=== PATIENT | female | born 1995 | race African-American/Black ===

== ENCOUNTER 2020-02-14 00:16 | Inpatient (IN) | payer MEDICAID ==
[2020-02-14] MEDS ORDERED: Carboprost Tromethamine 250 MCG/1 ML Amp IM PRN (00:22)
[2020-02-14] MEDS ORDERED: Water For Irrigation,Sterile 1,000 ML Container IRR PRN (00:22)
[2020-02-14] MEDS ORDERED: hydrOXYzine HCl 25 MG Tab PO PRN (00:22)
[2020-02-14] MEDS ORDERED: Butorphanol 1 MG/ML SDV IVPUSH PRN (00:22)
[2020-02-14] MEDS ORDERED: Sodium Chloride 0.9% 10 ML Syringe FLUSH PRN (00:22)
[2020-02-14] MEDS ORDERED: Misoprostol 200 MCG Tab PO PRN (00:22)
[2020-02-14] MEDS ORDERED: Ondansetron 4 MG/2 ML SDV IVPUSH PRN (00:22)
[2020-02-14] MEDS ORDERED: Sodium Chloride 0.9% 2.5 ML Syringe FLUSH PRN (00:22)
[2020-02-14] MEDS ORDERED: Tranexamic Acid 1,000 MG in Sodium Chloride 0.9% 100 ML IV PRN (00:22)
[2020-02-14] MEDS ORDERED: Sodium Chloride 0.9% 10 ML SDV IV PRN (00:22)
[2020-02-14] MEDS ORDERED: Terbutaline 1 MG/ML SDV SUBCUT PRN (00:22)
[2020-02-14] MEDS ORDERED: Lidocaine 1% 50 ML MDV INJECT PRN (00:22)
[2020-02-14] MEDS ORDERED: Methylergonovine 0.2 MG/1 ML Amp IM PRN (00:22)
[2020-02-14] MEDS ORDERED: Oxytocin/0.9 % Sodium Chloride 30 UNIT/500 ML BAG IV SCH ×2 (00:30)
[2020-02-14] MEDS: Misoprostol 25 MCG (1/4 of 100 MCG) Tab PO PRN ×2 (01:24→05:49)
[2020-02-14] MEDS: Misoprostol 25 MCG (1/4 of 100 MCG) Tab VAG PRN ×2 (01:24→05:49)
[2020-02-14] MEDS ORDERED: FLU Vacc QS2020-21 36MOS UP/PF 60 MCG/0.5 ML Syringe IM ONE (02:30)
[2020-02-14] MEDS: Lactated Ringers 1,000 ML IV SCH ×4 (02:42→16:44)
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
[2020-02-14] MEDS: Nalbuphine 10 MG/1 ML Vial IVPUSH PRN ×2 (11:14→12:58)
[2020-02-14] MEDS ORDERED: fentaNYL 100 MCG/2 ML SDV ONE (14:36)
[2020-02-14] MEDS ORDERED: Ropivacaine HCl/PF 100 ML ONE (14:36)
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
--- NOTE | 2020-02-14 15:17 | PCM.PRNOTE ---
- Free Text/Narrative Note: Anes NOte Patient requests epidural for L&D. Sitting position, level L3-L4 midline approach. Sterile technique, chloraprep scrub to lumbar area. Sterile fenestrated drape applied. Epidural space easily achieved suing PRICILLA technique. PRICILLA at 3 cm. Cath threaded 6 cm with ease. Cath secured a t skin using sterile tclear adhesive dressing. 1508 Test 3 cc 1.5% lido with epi negative. 1511 Lod 10 cc 0.2% ropiviciane with 1 mcg cc fentanyl in slow divided doses. 1515 Pump started at 8 cc hr with 6 cc q 20 min prn bolus. Gena well. Time with patient [id number] Kita Ochoa CRNA
--- NOTE | 2020-02-14 15:26 | PCM.PRNOTE ---
- Free Text/Narrative Note: Corrected Anes Procedure note time. Time with patient [id number] Thomas Ochoa CATH LAB TECH
[2020-02-14] MEDS ORDERED: metFORMIN 500 MG Tab PO SCH (17:30)
[2020-02-14] MEDS ORDERED: Bisacodyl 10 MG Supp RECTAL PRN (21:45)
[2020-02-14] MEDS ORDERED: oxyCODONE 5 MG Tab PO PRN (21:45)
[2020-02-14] MEDS ORDERED: Witch Hazel Medicated Pads 40/Jar TOP PRN (21:45)
[2020-02-14] MEDS ORDERED: Acetaminophen 500 MG Tab PO PRN ×2 (21:45)
[2020-02-14] MEDS ORDERED: Ibuprofen 400 MG Tab PO PRN (21:45)
[2020-02-14] MEDS ORDERED: Benzocaine/Menthol 20%-0.5% Spray 78 GM Cannister TOP PRN (21:45)
[2020-02-14] MEDS ORDERED: Docusate Sodium 100 MG Cap PO PRN (21:45)
[2020-02-14] MEDS ORDERED: Lanolin 100% Cream 7 GM Tube TOP PRN (21:45)
[2020-02-14] MEDS: Ibuprofen 800 MG Tab PO PRN (23:45)
[2020-02-15] MEDS ORDERED: Diphtheria,Pertussis(Acell),Tetanus Vaccine 0.5 ML Syringe IM ONE (02:15)
--- NOTE | 2020-02-15 07:11 | PCM48HPAN ---
Post Anesthesia Note - EVALUATION WITHIN 48HRS OF ANESTHETIC Vital Signs in Normal Range: Yes Patient Participated in Evaluation: Yes Respiratory Function Stable: Yes Airway Patent: Yes Cardiovascular Function Stable: Yes Hydration Status Stable: Yes Pain Control Satisfactory: Yes Nausea and Vomiting Control Satisfactory: Yes Mental Status Recovered: Yes Vital Signs: Last Vital Signs Temp 36.4 C 02/15/20 02:54 Pulse 80 02/15/20 02:54 Resp 18 02/15/20 02:54 BP 114/55 L 02/15/20 02:54 Pulse Ox 97 02/15/20 02:54
--- NOTE | 2020-02-15 08:27 | OR ---
SURGEON: Sonu Wills MD DATE OF PROCEDURE: 02/14/2020 Ms. Renita Soto is a 24-year-old patient. She is primigravida. She is followed in our clinic jointly by myself and the assembler fishing floats. Her is complicated with gestational diabetes, and she was on metformin during this . The patient is admitted for elective induction because of her diabetes at 39 weeks. She was induced with Cytotec and Pitocin. She responded to that very well. At 10 o'clock this morning, she was 4 cm, 80, vertex, and minus 1 station. She had epidural anesthesia for labor analgesia. Later on, she progressed to 7, and she had a spontaneous rupture of the membrane with clear fluid. The patient continued to progress without any problem spontaneously. Later on, she was complete and complete, and she pushed for about an hour and a half, and she was able to accomplish normal spontaneous vaginal delivery. There was very small perineal tear, did not require stitching. There was no labial or cervical laceration. Placenta delivered spontaneous, complete, and intact without any problem. Estimated blood loss was 350 to 400 mL. heart rate was category 1 through the entire process of labor and delivery. There was no complication in the labor and the delivery process on this patient. LUANN / AUTUMN /[id number]
[2020-02-16] MEDS: Ibuprofen 800 MG Tab PO PRN ×2 (00:40→11:10)
--- NOTE | 2020-02-16 08:28 | PCM.DCSUM1 ---
Discharge Summary - Hospital Course Free Text/Narrative:: Discharge home with baby. Follow up in the clinic in 6 weeks for routine visit; sooner, if needed. Diagnosis: Stroke: No Modified Rodney Scale: No Symptoms at All Modified Rodney Scale Score: 0 - Discharge Data Discharge Date: 02/16/20 Discharge Disposition: Home, Self-Care 01 Condition: Good - Referral to Home Health Primary Care Physician: PCP None - Discharge Diagnosis/Problem(s) (1) (spontaneous vaginal delivery) SNOMED Code(s): 006725067 ICD Code: O80 - ENCOUNTER FOR FULL-TERM UNCOMPLICATED DELIVERY Status: Acute Priority: High Current Visit: Yes - Patient Instructions Diet: Usual Diet as Tolerated, Regular Diet as Tolerated, Drink 8-10+ Glasses/Day Activity: As Tolerated, No Strenuous Activities, Rest and Relax Today Driving: May Drive Today Showering/Bathing: May Shower Notify Provider of: Fever, Increased Pain, Swelling and Redness, Drainage, Nausea and/or Vomiting - Discharge Plan *PRESCRIPTION DRUG MONITORING PROGRAM REVIEWED*: Not Applicable *COPY OF PRESCRIPTION DRUG MONITORING REPORT IN PATIENT JETT: Not Applicable Prescriptions/Med Rec: Ibuprofen [Motrin] 800 mg PO Q6H PRN #90 tablet PRN Reason: Pain Home Medications: Home Meds Pnv No.95/Ferrous Fum/Folic AC [ Tablet] 1 each PO DAILY 01/21/20 [History] metFORMIN [Glucophage XR] 500 mg PO DAILY 01/21/20 [History] Ibuprofen [Motrin] 800 mg PO Q6H PRN #90 tablet 02/16/20 [Rx] Oxygen Therapy Mode: Room Air Referrals: [facility] [Outside] Sonu Wills MD [Physician] - 03/30/20 10:15 am (Follow up appointment 03/30/19 @ 10:15. Please arrive 30 minutes early with ID and Insurance cards. Masks are required. ) - Discharge Summary/Plan Comment DC Time >30 min.: Yes - General Info Date of Service: 02/16/20 Admission Dx/Problem (Free Text: Patient Status Order with Admit Dx/Problem 02/14/20 00:22 Patient Status [ADT] Routine Admission Diagnosis/Problem Admission Diagnosis/Problem 02/14/20 08:48 Renita is a 24 yo at 39+3 weeks gestation (KIRT 02/18/2020) that presents to L&D today for IOL d/t GDM treated with oral hypoglycemia therapy. Reports adequate movement. Denies LOF or vaginal bleeding at this time. AB pos, Ab screen neg, RI, GBS neg. EFW via 6-7 lbs. Pertinent medical history includes: GDM, obesity, late to PNC. NKDA. Medications: 500 mg metformin PO daily. Patient has no other complaints or concerns at this time. Functional Status: Reports: Pain Controlled, Tolerating Diet, Ambulating, Urinating - Review of Systems General: Reports: No Symptoms HEENT: Reports: No Symptoms Pulmonary: Reports: No Symptoms Cardiovascular: Reports: No Symptoms Gastrointestinal: Reports: No Symptoms Genitourinary: Reports: No Symptoms Musculoskeletal: Reports: No Symptoms Skin: Reports: No Symptoms Neurological: Reports: No Symptoms Psychiatric: Reports: No Symptoms - Patient Data Vitals - Most Recent: Last Vital Signs Temp 98.3 F 02/16/20 07:25 Pulse 64 02/16/20 07:25 Resp 16 02/16/20 07:25 BP 112/54 L 02/16/20 07:25 Pulse Ox 98 02/16/20 07:25 Weight - Most Recent: 234 lb Lab Results - Last 24 hrs: Laboratory Results - last 24 hr 02/14/20 Range/Units 01:20 RPR Non-Reac (Non-Reac) Med Orders - Current: Current Medications Acetaminophen (Tylenol Extra Strength) 500 mg PO Q4H PRN PRN Reason: Pain Acetaminophen (Tylenol Extra Strength) 1,000 mg PO Q4H PRN PRN Reason: Pain Benzocaine/Menthol (Dermoplast Pain Relief 20%-0.5% [place]) 78 gm TOP ASDIRECTED PRN PRN Reason: Perineal Comfort Measure Bisacodyl (Dulcolax) 10 mg RECTAL ONETIME PRN PRN Reason: Constipation Butorphanol Tartrate (Stadol) 1 mg IVPUSH Q1H PRN PRN Reason: Pain Last Admin: 02/14/20 08:57 Dose: 1 mg Documented by: Carboprost Tromethamine (Hemabate Ds) 250 mcg IM ASDIRECTED PRN PRN Reason: Post Hemorrhage Docusate Sodium (Colace) 100 mg PO BID PRN PRN Reason: Constipation Emollient Ointment (Lansinoh Hpa) 0 gm TOP ASDIRECTED PRN PRN Reason: Sore Nipples Hydroxyzine HCl (Atarax) 50 mg PO ONETIME PRN PRN Reason: Insomnia Last Admin: 02/14/20 05:20 Dose: 50 mg Documented by: Oxytocin/Sodium Chloride (Oxytocin 30 Unit/500 Ml-Ns) 30 unit in 500 mls @ 999 mls/hr IV TITRATE [facility] Last Infusion: 02/14/20 23:30 Dose: Infused Documented by: Tranexamic Acid 1,000 mg/ (Sodium Chloride) 110 mls @ 660 mls/hr IV ONETIME PRN PRN Reason: Bleeding Oxytocin/Sodium Chloride (Oxytocin 30 Unit/500 Ml-Ns) 30 unit in 500 mls @ 2 mls/hr IV TITRATE [facility]; Protocol Lactated Ringer's (Ringers, Lactated) 1,000 mls @ 150 mls/hr IV ASDIRECTED [facility] Last Infusion: 02/14/20 23:30 Dose: Infused Documented by: Ibuprofen (Motrin) 400 mg PO Q4H PRN PRN Reason: Pain Ibuprofen (Motrin) 800 mg PO Q6H PRN PRN Reason: Pain Last Admin: 02/16/20 00:40 Dose: 800 mg Documented by: Lidocaine HCl (Xylocaine 1%) 50 ml INJECT ONETIME PRN PRN Reason: Laceration repair Metformin HCl (Glucophage) 500 [facility] [place] [facility] Methylergonovine Maleate (Methergine) 0.2 mg IM ASDIRECTED PRN PRN Reason: Post Hemorrhage Misoprostol (Cytotec) 200 mcg PO ONETIME PRN PRN Reason: Post Hemorrhage Misoprostol (Cytotec) 25 mcg VAG Q4H PRN PRN Reason: Cervical Ripening Last Admin: 02/14/20 05:49 Dose: 25 mcg Documented by: Misoprostol (Cytotec) 25 mcg PO Q4H PRN PRN Reason: Labor Last Admin: 02/14/20 05:49 Dose: 25 mcg Documented by: Nalbuphine HCl (Nubain) 10 mg IVPUSH Q1H PRN PRN Reason: Pain (severe 7-10) Last Admin: 02/14/20 12:58 Dose: 10 mg Documented by: Ondansetron HCl (Zofran) 4 mg IVPUSH Q4H PRN PRN Reason: Nausea/Vomiting Oxycodone HCl (Oxycodone) 5 mg PO Q2H PRN PRN Reason: Pain Sodium Chloride (Saline Flush) 10 ml FLUSH ASDIRECTED PRN PRN Reason: Keep Vein Open Sodium Chloride (Saline Flush) 2.5 ml FLUSH ASDIRECTED PRN PRN Reason: Keep Vein Open Sodium Chloride (Normal Saline) 10 ml IV ASDIRECTED PRN PRN Reason: IV Use Sterile Water (Sterile Water For Irrigation) 1,000 ml IRR ASDIRECTED PRN PRN Reason: delivery Terbutaline Sulfate (Brethine) 0.25 mg SUBCUT ASDIRECTED PRN PRN Reason: Tacysystole Witch Bindu (Tucks) 1 pad TOP ASDIRECTED PRN PRN Reason: comfort care Discontinued Medications Diphtheria/Tetanus/Acell Pertussis (Boostrix) 0.5 ml IM .ONCE ONE Stop: 02/15/20 02:16 Fentanyl (Sublimaze) Confirm Administered Dose 100 mcg .ROUTE .STK-MED ONE Stop: 02/14/20 14:37 Ropivacaine (Naropin 0.2%) Confirm Administered Dose 100 mls @ as directed .ROUTE .STK-MED ONE Stop: 02/14/20 14:37 Influenza Virus Vaccine (Afluria Quad 2020-21 (3yr Up)) 60 mcg IM .ONCE ONE Stop: 02/14/20 02:31 - Exam General: Reports: Alert, Oriented, Cooperative, No Acute Distress Lungs: Reports: Normal Respiratory Effort Cardiovascular: Reports: Regular Rate, Regular Rhythm GI/Abdominal Exam: Soft, Non-Tender (Female) Exam: Deferred Rectal (Female) Exam: Deferred Back Exam: Reports: Normal Inspection, Full Range of Motion Extremities: Normal Inspection, Normal Range of Motion, Non-Tender, Normal Capillary Refill Skin: Reports: Warm, Dry, Intact Neurological: Reports: No New Focal Deficit, Normal Speech, Normal Tone, Strength Equal Bilateral, Sensation Intact Psy/Mental Status: Reports: Alert, Normal Affect, Normal Mood
[2020-02-16] MEDS ORDERED: FLU VACC QS2020-21(6MOS UP)/PF 60 MCG/0.5 ML SYRINGE IM ONE (09:00)
== END 2020-02-16 18:34 | disposition home or self-care (01) | DRG 807 ==
LOC: MW.OBCHECK 00:16 → MW.OB 00:18 → MW.OBCHECK 00:22 → OBSVTOIN 21:39 → MW.OB 02-15 02:55
PROVIDERS: ADMIT Obstetrics & Gynecology; ATTEND Obstetrics & Gynecology
PROC: 10E0XZZ Delivery of Products of Conception, External Approach (ICD-10-PCS; principal; 2020-02-14)
PROC: 3E033VJ Introduction of Other Hormone into Peripheral Vein, Percutaneous Approach (ICD-10-PCS; 2020-02-14)
PROC: 3E0R3BZ Introduction of Anesthetic Agent into Spinal Canal, Percutaneous Approach (ICD-10-PCS; 2020-02-14)
PROC: 00HU33Z Insertion of Infusion Device into Spinal Canal, Percutaneous Approach (ICD-10-PCS; 2020-02-14)
PROC: 3E02340 Introduction of Influenza Vaccine into Muscle, Percutaneous Approach (ICD-10-PCS; 2020-02-16)
DX: O24.425 Gestational diabetes mellitus in childbirth, controlled by oral hypoglycemic drugs (principal); Z37.0 Single live birth; Z3A.39 39 weeks gestation of pregnancy; O99.214 Obesity complicating childbirth; E66.9 Obesity, unspecified; Z91.013 Allergy to seafood; Z23 Encounter for immunization
CPT/HCPCS: 36415; 51702; 59409; 85014; 85018; 85027; 86156; 86592; 86850; 86900; 86901; 90471; 90686; A9270-GY; J0595; J2300; J2590; J7120

== ENCOUNTER 2020-04-17 11:52 | Emergency (ER) | payer MEDICAID, OTHER, SELFPAY ==
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
[2020-04-17] MEDS ORDERED: Dicyclomine 10 MG Cap PO ONE (12:50)
[2020-04-17] MEDS ORDERED: Magnesium Citrate Solution 296 ML Bottle PO ONE ×2 (12:50→12:57)
--- NOTE | 2020-04-17 13:11 | CR ---
Indication: Constipation Technique: Plain film of abdomen as a supine study Comparison: None Findings: No pathologic calcifications. Normal osseous structures. Moderate diffuse fecal retention without mechanical obstruction Impression: Moderate fecal retention without evidence of mechanical obstruction. Dictated by Cody Sheridan MD @ Apr 17 2020 1:09PM Signed by Dr. Cody Sheridan @ Apr 17 2020 1:10PM
[2020-04-17 13:27] LABS: BLOOD UREA NITROGEN,BUN 11 mg/dL (7.0-18.0); CARBON DIOXIDE,CO2 28.3 mmol/L (21.0-32.0); CHLORIDE,CL 101 mmol/L (98-107); GLUCOSE RANDOM 92 mg/dL (74-106); LIPASE 200 U/L (73-393); POTASSIUM,K 4.5 mmol/L (3.5-5.1); SODIUM,NA 137 mmol/L (136-145)
--- NOTE | 2020-04-17 14:20 | CT ---
INDICATION: Abdominal pain. No bowel movement in 2 months. COMPARISON: None TECHNIQUE: CT examination of the abdomen and pelvis was performed without intravenous contrast. Thin section axial images were obtained from the lung bases through the pubic symphysis. Oral contrast was not administered. Please note that all CT scans at this facility use dose modulation, iterative reconstruction, and/or weight-based dosing when appropriate to reduce radiation dose to as low as reasonably achievable. FINDINGS: LUNG BASES: The lung bases as visualized appear normal.The heart size is normal at the lung bases. LIVER/BILIARY SYSTEM:The liver is normal in size and configuration given the lack of intravenous contrast. There is no visible focal mass and there is no intra- or extra hepatic biliary ductal dilatation.The gall bladder appears normal. ADRENALS: Normal non-contrast appearance KIDNEYS, URETERS and BLADDER:The kidneys appear normal given lack of intravenous contrast. No visible mass, calculus or hydronephrosis. The bladder is compressed anteriorly and superiorly due to a markedly distended rectosigmoid. SPLEEN:Normal non-contrast appearance. PANCREAS: Normal non-contrast appearance. RETROPERITONEUM and MESENTERY: There is no mass, adenopathy or aortic aneurysm. GASTROINTESTINAL SYSTEM: There is profound diffuse fecal retention. This is seen throughout the colon but is most pronounced in the rectosigmoid area where there appears to be rectosigmoid impaction. There are perirectal inflammatory changes consistent with stercoral proctitis. The small bowel does not appear to be abnormally dilated PELVIS: No mass, adenopathy or free fluid. OSSEOUS STRUCTURES and ABDOMINAL WALL: There is an age-appropriate appearance of the osseous structures.No significant abdominal wall defect. OTHER: No free fluid or free air. IMPRESSION: Profound diffuse fecal retention up to the anal canal. This is seen throughout the colon but is most pronounced in the rectosigmoid area. There is rectosigmoid fecal impaction with perirectal inflammatory changes consistent with stercoral proctitis. The small bowel is not abnormally dilated. The exact etiology of this retention pattern is not certain Please note that all CT scans at this facility use dose modulation, iterative reconstruction, and/or weight-based dosing when appropriate to reduce radiation dose to as low as reasonably achievable. Dictated by Cody Sheridan MD @ Apr 17 2020 2:20PM Signed by Dr. Cody Sheridan @ Apr 17 2020 2:20PM
== END 2020-04-17 15:03 | disposition home or self-care (01) ==
LOC: MW.ED 11:52
DX: K59.00 Constipation, unspecified (principal); E66.9 Obesity, unspecified; Z68.35 Body mass index [BMI] 35.0-35.9, adult; Z91.013 Allergy to seafood
CPT/HCPCS: 36415; 74018; 74176; 80053; 83690; 85025; 99284; A9270; 99283